=== PATIENT | female | born 1965 | race Caucasian/White ===

== ENCOUNTER 2018-06-09 06:15 | Observation (INO) | payer OTHER ==
[2018-06-08 11:41] LABS: BASOPHILS % 0.3 % (0.0-1.0); EOSINOPHILS # (AUTO) 0.3 (0.0-0.4); EOSINOPHILS % 2.9 % (0.0-6.0); HEMOGLOBIN 14.9 g/dL (12.0-16.0); LYMPHOCYTES # (AUTO) 2.1 (1.0-3.2); LYMPHOCYTES % 21.2 % (18.0-39.1); MEAN CORPUSCULAR HGB CONC 33.1 g/dL (31-35); MEAN CORPUSCULAR VOLUME 90.7 fL (81-99); MONOCYTES # (AUTO) 0.5 (0.2-0.8); MONOCYTES % 4.9 % (4.4-11.3); NEUTROPHILS % 70.5 % (38.7-80.0); PLATELET COUNT 249 x10e3/uL (140-360); RED BLOOD COUNT 4.96 x10e6/uL (3.6-5.1)
[2018-06-08 12:22] LABS: ALANINE AMINOTRANSFERASE 36 IU/L (0-55); ALBUMIN 4.2 g/dL (3.5-5.0); ALBUMIN/GLOBULIN RATIO 1.1 (0.8-2.0); ALKALINE PHOSPHATASE 97 IU/L (40-150); ANION GAP 11.8 mmol/L (8-16); BLOOD UREA NITROGEN 12 mg/dL (7-26); BUN/CREATININE RATIO 14 (6-25); CALCIUM 10.5 mg/dL (8.4-10.2); CARBON DIOXIDE 29 mmol/L (22-29); CHLORIDE 102 mmol/L (98-107); CREATININE, SERUM 0.84 mg/dL (0.57-1.11); EST GLOMERULAR FILTRATION RATE > 60 ML/MIN (60-); GLUCOSE 93 mg/dL (74-118); POTASSIUM 4.8 mmol/L (3.5-5.1); SODIUM 138 mmol/L (136-145)
[2018-06-08 12:51] LABS: INR 0.87; PROTHROMBIN TIME 12.3 seconds (11.9-14.5)
[2018-06-08 12:52] LABS: PARTIAL THROMBOPLASTIN TIME 30.5 seconds (23.8-35.5)
--- NOTE | 2018-06-08 14:32 | Diagnostic Imaging Report ---
EXAM: CHEST 2 VIEWS, PA and lateral DATE: 06/08/2018Time stamp on exam: 11:58 AM INDICATION: Preoperative for heart catheterization COMPARISON: None FINDINGS: LINES/TUBES: None LUNGS: No consolidations or edema. Small right lower lobe calcified granuloma. PLEURA: No effusions or pneumothorax. HEART AND MEDIASTINUM: Normal size and contour. BONES AND SOFT TISSUES: No acute findings. IMPRESSION: No acute thoracic abnormality. Signed by: Dr. Ortiz Villarreal DO on 06/08/2018 1:19 PM
[~2018-06-09] VITALS: Ht 160 cm; Wt 91.6 kg
[2018-06-09] VITALS (13 sets, daily range): BP systolic 104–145; BP diastolic 64–89
[~2018-06-09 06:15] MED LIST: ASPIR 8181 MG PO; ATORVASTATIN CA20 MG PO; BRILINTA90 MG PO; CITALOPRAM HBR20 MG PO; ESTROGEN-METHY1 EAC2 PO; METFORMIN HCL500 MG PO; METOPROLOL TART25 MG PO
--- OUTSIDE RECORDS SUMMARY | 2018-06-09 06:17 | XMS REPORT ---
Author Author [facility] Address Unknown Phone Unavailable Care Team Providers Care Insurance Processor Name Role Phone LINDA AVALOS Unavailable Unavailable Payers Payer Name Policy Type Policy Number Effective Date Expiration Date Problems This patient has no known problems. Allergies, Adverse Reactions, Alerts Allergy Name Allergy Type Status Severity Reaction(s) Onset Date Inactive Date Treating Clinician Comments No Known Allergies DA Active U 2013-03-12 00:00:00 Medications This patient has no known medications. Results Test Description Test Time Test Comments Text Results Atomic Results Result Comments CHEST 2 VIEWS 2018-06-08 13:18:00 [place] [address] Patient Name: LAUREN SORIANO MR #: [id number] : 1965 Age/Sex: 52/F Req #: [id number] Adm Physician: Ordered by: LINDA AVALOS MD Report #: [id number] Location: [facility] Room/Bed: Procedure: [id number] DX/CHEST 2 VIEWS Exam Date: 06/08/18 Exam Time: 1158 REPORT STATUS: Signed EXAM: CHEST 2 VIEWS, PA and lateral DATE: 06/08/2018Time stamp on exam: 11:58 AM INDICATION: Preoperative for heart catheterization COMPARISON: None FINDINGS: LINES/TUBES: None LUNGS: No consolidations or edema. Small right lower lobe calcified granuloma. PLEURA: No effusions or pneumothorax. HEART AND MEDIASTINUM: Normal size and contour. BONES AND SOFT TISSUES: No acute findings. IMPRESSION: No acute thoracic abnormality. Signed by: Dr. Santana Villarreal DO on 06/08/2018 1:19 PM Dictated By: SANTANA VILLARREAL DO 1319 Transcribed By: SHERLYN on 06/08/18 1319 COPY TO: LINDA AVALOS MD COAGULATION TIME ACTIVATED 2018-04-23 06:54:00 COAGULATION TIME ACTIVATED (test code=ACT) 385 seconds 62.8-88.0 COAGULATION TIME [id number] 06:54:00* Test Item Value Reference Range Comments COAGULATION TIME ACTIVATED (test code=ACT) 134 seconds 62.8-88.0 CBC W/AUTO [id number] 14:41:00* Test Item Value Reference Range Comments WHITE BLOOD CELL (test code=WBC) 13.0 K/mm3 4.5-12.5 RED BLOOD CELL (test code=RBC) 4.35 mill/mm3 3.7-5.2 HEMOGLOBIN (test code=HGB) 13.2 gram/dL 11.5-15.5 HEMATOCRIT (test code=HCT) 41.4 % 36.0-46.0 MEAN CELL VOLUME (test code=MCV) 95.2 fL 80-98 MEAN CELL HGB (test code=MCH) 30.3 picogram 27.0-33.0 MEAN CELL HGB CONCETRATION (test code=MCHC) 31.9 gram/dL 33.0-36.0 RED CELL DISTRIBUTION WIDTH (test code=RDW) 14.6 % 11.6-16.2 RED CELL DISTRIBUTION WIDTH SD (test code=RDW-SD) 51.6 fL 37.0-51.0 PLATELET COUNT (test code=PLT) 210 K/mm3 150-450 MEAN PLATELET VOLUME (test code=MPV) 9.3 fL 6.7-11.0 NEUTROPHIL % (test code=NT%) 72.2 % 39.0-69.0 IMMATURE GRANULOCYTE % (test code=IG%) 0.5 % 0.0-5.0 LYMPHOCYTE % (test code=LY%) 19.7 % 25.0-55.0 MONOCYTE % (test code=MO%) 6.1 % 0.0-10.0 EOSINOPHIL % (test code=EO%) 1.2 % 0.0-5.0 BASOPHIL % (test code=BA%) 0.3 % 0.0-1.0 NUCLEATED RBC % (test code=NRBC%) 0.0 % 0-0 NEUTROPHIL # (test code=NT#) 9.35 K/mm3 1.8-7.7 IMMATURE GRANULOCYTE # (test code=IG#) 0.07 x10 3/uL 0-0.03 LYMPHOCYTE # (test code=LY#) 2.56 K/mm3 1.0-5.0 MONOCYTE # (test code=MO#) 0.79 K/mm3 0-0.8 EOSINOPHIL # (test code=EO#) 0.16 K/mm3 0.0-0.5 BASOPHIL # (test code=BA#) 0.04 K/mm3 0.0-0.2 NUCLEATED RBC # (test code=NRBC#) 0.00 K/mm3 0.0-0.1 MANUAL DIFF REQUIRED (test code=MDIFF) NO
[2018-06-09] MEDS ORDERED: MIDAZOLAM HCL 2 MG/2 ML VIAL ONE (07:17)
[2018-06-09] MEDS ORDERED: SODIUM CHLORIDE 0.9% 1000ML 1,000 ML ONE ×2 (07:17→10:14)
[2018-06-09] MEDS ORDERED: HEPARIN SOD/SOD CHLORIDE 2,000 ML ONE (07:17)
[2018-06-09] MEDS ORDERED: FENTANYL CITRATE/PF 100MCG/2 ML INJ ONE (07:17)
[2018-06-09] MEDS ORDERED: LIDOCAINE HCL 1% LOCAL INJ 20 ML VIAL ONE (07:17)
[2018-06-09] MEDS ORDERED: IOPAMIDOL 370 MG/ML 200 ML INFUS..BTL INJ ONE (07:17)
[2018-06-09] MEDS ORDERED: BIVALRIUDIN 250 MG/VIAL VIAL IV ONE (07:33)
[2018-06-09] MEDS ORDERED: HEPARIN SOD (PORCINE) 1000 UNIT/ML 30ML ONE (07:33)
[2018-06-09] MEDS ORDERED: SODIUM CHLORIDE 0.9% 50ML 50 ML ONE (07:33)
[2018-06-09] MEDS ORDERED: NITROGLYCERIN/D5W 200 MCG/ML 250 ML ONE (07:33)
[2018-06-09] MEDS ORDERED: CLOPIDOGREL BISULFATE 75 MG TAB ONE (08:20)
[2018-06-09] MEDS ORDERED: ASPIRIN 325 MG TAB ONE (08:20)
[2018-06-09] MEDS ORDERED: ATROPINE SULFATE 0.1 MG/ML 10ML SYR ONE (10:40)
--- NOTE | 2018-06-09 10:43 | NUR ---
1043 sheath pull by Yasir SHAW and [facility] Director Manual pressure x 20min tolerated well DP/PT x4 Transfer report to [facility]. Rm 186. Ok to eat flat till 5pm 20min hold with stasis achieved vs and ekg stable 12 lead done Diet ordered to rm 186. Cardiac. Transport with tele and RN escort. Iv site to left arm no s/s infiltration Back to baseline orientation. ds/rn
[2018-06-09] MEDS ORDERED: TRAMADOL HCL 50 MG TAB PO PRN ×2 (16:00→16:15)
--- NOTE | 2018-06-09 17:30 | NUR ---
Pt ambulated in hallway with assist x1. No c/o pain to R femoral site. No s/s of hematoma to R femoral site. Tele monitoring in place. No s/s of resp distress or SOB. IV to L hand patent and intact. No redness or swelling to IV insertion site. Pain medication administered for Lower back pain, pt stated pain medication somewhat effective in relieving pain.
--- NOTE | 2018-06-09 19:00 | NUR ---
Report and rounds completed. C/O pain to lower back and tramadol not effective. Will notify MD pain medication not effective. Groin to right side soft, clean,dry and intact. Call light within reach. Will continue to monitor.
--- NOTE | 2018-06-09 19:10 | NUR ---
Called and spoke with Dr Spann that patient c/o pain to lower back (HX back surgeries) bedrest made back hurt and tramadol not effective for pain. Order: morphine 2 mg ivp Q 4 hrs PRN pain.
[2018-06-09] MEDS ORDERED: MORPHINE SULFATE 2 MG/ML SYR 1ML IV PRN (19:15)
[2018-06-09] MEDS: MORPHINE SULFATE INJ 4 MG/ML INJ 1ML IV PRN (20:09)
--- NOTE | 2018-06-09 22:00 | NUR ---
Resting in bed resting, resp even and unlabored. No issues or concerns at this time. Call light within reach, bed locked and in lowest position. Will continue to monitor.
[2018-06-10] VITALS: BP 124/69
--- NOTE | 2018-06-10 00:17 | Operative Report ---
DATE OF PROCEDURE: 06/09/2018 SURGEON: José Spann MD PROCEDURE: 1. Left heart catheterization. 2. Coronary angiogram. 3. Stent placement in the left circumflex. INDICATION: Coronary artery disease. ANESTHESIA: A 2% Lidocaine for local anesthesia. Fentanyl and Versed for conscious sedation. BLOOD LOSS: 8 mL. DESCRIPTION OF PROCEDURE: After informed consent, the patient was brought to the cardiac catheterization laboratory and placed on the table. Both groins were painted and draped in a sterile fashion. Lidocaine was injected in the right groin for local anesthesia. Right femoral artery was accessed by a Seldinger technique and a 6-[place] sheath was placed in the right femoral artery. The left main artery was cannulated using an XB-3, 6-[place] guide. A Shopitize wire was manipulated and placed in the distal left circumflex. A 2.5 x 12 mm Emerge balloon was used to dilate the lesion at 8 atmospheres for about 20 seconds. The balloon was removed and a 2.5 x 26 mm Resolute Trevin drug-eluting stent was deployed across the lesion at 14 atmospheres for about 20 seconds. All this was performed under constant fluoroscopic guidance. The patient was given aspirin, Plavix, and Angiomax during the procedure. Subsequently, the right coronary artery was cannulated using 3DRC 5-[place] catheter. Coronary angiogram was performed and images were obtained. The stent in the right coronary artery was patent. The patient tolerated the procedure without any complications. REPORT: 1. Left main; normal caliber with luminal irregularities. 2. Left anterior descending; normal caliber with luminal irregularities, there is 20% proximally and 20% mid lesion. 3. Left circumflex; normal caliber. There is a long 90% mid lesion. 4. Right coronary artery; normal caliber with a stent in the mid LAD is patent. Balloon used is 2.5 x 12 mm Emerge. Stent used is 2.5 x 26 mm [place] drug eluting stent, which is deployed in the mid left circumflex. There is IMMANUEL 3 flow and 0% residual stenosis. José Spann MD SC/MODL /[id number]
[2018-06-10] MEDS: MORPHINE SULFATE INJ 4 MG/ML INJ 1ML IV PRN (00:35)
--- NOTE | 2018-06-10 01:10 | NUR ---
Received report from nurse. Pt alert to name. Lying right side in bed. No acute distress noted. Call holt within reach. Will continue to monitor.
[2018-06-10] MEDS: INFLUENZA VIRUS VAC SPLIT INJ 0.5 ML SYR IM SCH ×3 (01:40→08:53)
[2018-06-10 04:00] VITALS: BP 149/75
[2018-06-10] MEDS ORDERED: SODIUM CHLORIDE 0.9% 1000ML 1,000 ML IV SCH (04:45)
[2018-06-10 06:29] VITALS: BP 149/75
[2018-06-10 06:39] LABS: BASOPHILS % 0.2 % (0.0-1.0); EOSINOPHILS # (AUTO) 0.2 (0.0-0.4); EOSINOPHILS % 2.2 % (0.0-6.0); HEMOGLOBIN 13.4 g/dL (12.0-16.0); LYMPHOCYTES # (AUTO) 1.6 (1.0-3.2); MEAN CORPUSCULAR HEMOGLOBIN 30.2 pg (28-32); MEAN CORPUSCULAR HGB CONC 32.7 g/dL (31-35); MEAN CORPUSCULAR VOLUME 92.6 fL (81-99); MONOCYTES # (AUTO) 0.7 (0.2-0.8); MONOCYTES % 6.7 % (4.4-11.3); NEUTROPHILS # (AUTO) 7.6 (2.1-6.9); NEUTROPHILS % 74.5 % (38.7-80.0); PLATELET COUNT 209 x10e3/uL (140-360); RED BLOOD COUNT 4.43 x10e6/uL (3.6-5.1); RED CELL DISTRIBUTION WIDTH 14.3 % (11.7-14.4)
[2018-06-10 07:11] LABS: ANION GAP 11.3 mmol/L (8-16); BLOOD UREA NITROGEN 14 mg/dL (7-26); BUN/CREATININE RATIO 18 (6-25); CALCIUM 10.1 mg/dL (8.4-10.2); CARBON DIOXIDE 26 mmol/L (22-29); CHLORIDE 100 mmol/L (98-107); CHOL/HDL RATIO 4.3 (3.0-3.6); CHOLESTEROL 143 MD/DL (0-199); CREATININE, SERUM 0.77 mg/dL (0.57-1.11); EST GLOMERULAR FILTRATION RATE > 60 ML/MIN (60-); GLUCOSE 113 mg/dL (74-118); HDL CHOLESTEROL 33 MG/DL (40-60); LDL CHOLESTEROL 70 MG/DL (60-130); POTASSIUM 4.3 mmol/L (3.5-5.1); SODIUM 133 mmol/L (136-145); TRIGLYCERIDES 202 MG/DL (0-149)
[2018-06-10 07:49] VITALS: BP 134/84
[2018-06-10] MEDS ORDERED: METFORMIN HCL 500 MG TAB PO SCH (08:00)
[2018-06-10] MEDS ORDERED: TESTOSTERONE PO SCH (09:00)
[2018-06-10] MEDS ORDERED: ASPIRIN 81 MG CHEW TAB PO ONE (09:00)
[2018-06-10] MEDS ORDERED: ESTROGEN ESTER PO SCH (09:00)
[2018-06-10] MEDS ORDERED: PNEUMOCOCCAL VACCINE POLYVALENT 23 MCG/0.5 ML VIAL IM ONE (09:00)
[2018-06-10] MEDS ORDERED: ASPIRIN 81 MG CHEW TAB PO SCH (09:00)
[2018-06-10] MEDS ORDERED: METOPROLOL TARTRATE 25 MG TAB PO SCH (09:00)
[2018-06-10] MEDS ORDERED: TICAGRELOR 90 MG TABLET PO SCH ×2 (09:00)
[2018-06-10] MEDS ORDERED: CITALOPRAM HYDROBROMIDE 20 MG TAB PO SCH (09:00)
[2018-06-10 11:00] VITALS: BP 134/84
[2018-06-10 11:31] VITALS: BP 130/74
--- NOTE | 2018-06-10 13:46 | NUR ---
SOCIAL WORK INITIAL ASSESSMENT Electrical Systems Drafter to bedside to discuss plan of care with patient/family. CM/SW role and care transitions discussed. Anticipated discharge plan discussed along with duration of care. CM/SW discussed patients right to make decisions in care. CM/SW work hours given. Patient lives: IN APARTMENT WITH Admit/Transfer: VIA ED POA/Emergency contact: MANJEET [phone] Current/Previous Home Health: NONE PCP/Follow-up Care: [facility] Current/Previous DME: NONE Other Services: NONE Employment Status: RETIRED Areas of Concerns: SMOKES DAILY WITH COFFEE Referral Needs: NONE Education Needs: NONE IMM/YEH given and signed (if applicable): NA Goal for discharge: RETURN HOME INDEPENDENTLY CM/SW left business card at the bedside with contact information. Name and number was also written on the patients whiteboard. Patient verbalized understanding of discussion. CM will follow-up with ongoing discharge and transition of care needs.
[2018-06-10] MEDS ORDERED: ATORVASTATIN 20 MG TAB PO SCH (21:00)
== END 2018-06-10 11:50 | disposition home or self-care (01) ==
LOC: CATH LAB 06:15 → CATH LAB V 10:12 → IMCU 11:22
DX: I25.10 Atherosclerotic heart disease of native coronary artery without angina pectoris (principal); Z01.810 Encounter for preprocedural cardiovascular examination; Z01.812 Encounter for preprocedural laboratory examination; Z01.811 Encounter for preprocedural respiratory examination; I10 Essential (primary) hypertension; E11.9 Type 2 diabetes mellitus without complications; E78.00 Pure hypercholesterolemia, unspecified; Z95.5 Presence of coronary angioplasty implant and graft; E66.9 Obesity, unspecified; Z68.35 Body mass index [BMI] 35.0-35.9, adult; Z72.0 Tobacco use; Z79.84 Long term (current) use of oral hypoglycemic drugs; Z79.82 Long term (current) use of aspirin; Z23 Encounter for immunization
CPT/HCPCS: 36415 ×2; 71046; 80048; 80053; 80061; 85025 ×2; 85610; 85730; 90732; 92928; 93005 ×3; 93454; C1725; C1874; G0378 ×2; J0583; J1644; J2001; J2270 ×2; J7030; Q9967; J2250